=== PATIENT | male | born 1950 | race Caucasian/White ===

== ENCOUNTER 2017-07-05 22:21 | Emergency (ER) | payer BC, OTHER ==
[~2017-07-05] VITALS: Ht 162.6 cm; Wt 62.0 kg
[~2017-07-05 22:21] MED LIST: CMD1 PO; FRRG PO
[2017-07-05 22:35] VITALS: TEMP 37; Ht 162.6 cm; Wt 62.0 kg
--- NOTE | 2017-07-05 23:13 | EMERGENCY ROOM VISIT NOTE ---
History Report prepared by Elsy: Susan Cruz Under the Supervision of: Dr. Juan Pena M.D. First contact with patient: 23:04 Chief Complaint: GROIN PAIN Stated Complaint: DEEP PAIN IN R UPPER LEG/GROIN AREA History of Present Illness The patient is a 66 year old male who presents to the Emergency Room with complaints of sudden right groin pain beginning today. The patient reports that he was doing leg presses at the gym today, and when he got home he felt pain in his right groin. The patient denies testicular pain. He also denies being on blood thinners. He reports that lifting his leg exacerbates the pain. 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 The patient denies back pain , and also denies recent steroid or antibiotic use. Source of History: patient Onset: today Position: other (right groin ) Timing: other (sudden ) Modifying Factors (Worsening): movement (lifting leg ) Associated Symptoms: No back pain Review of Systems See HPI for pertinent positives & negatives. A total of 10 systems reviewed and were otherwise negative. Past Medical & Surgical Medical Problems: (1) Arthritis of knee (2) Osteoarthritis of hip Family History No pertinent family history stated. Social History Smoking Status: Never Smoker Marital Status: Current/Historical Medications Scheduled Doxycycline Hyclate (Vibramycin), 100 MG PO BID Allergies Coded Allergies: No Known Allergies (Verified , 07/05/17) Physical Exam Vital Signs Date Time Temp Pulse Resp B/P (MAP) Pulse Ox O2 Delivery O2 Flow Rate FiO2 07/06/17 01:30 77 18 132/71 97 07/06/17 00:22 77 20 119/59 99 Room Air 07/05/17 22:35 37.0 71 20 132/80 97 Room Air Physical Exam GENERAL: Patient is uncomfortable appearing and in mild distress. HEENT: No acute trauma, normocephalic atraumatic, mucous membranes moist, no nasal congestion, no scleral icterus. NECK: No stridor, no adenopathy, no meningismus, trachea is midline. LUNGS: No dyspnea. Clear to auscultation and equal bilaterally. No wheeze, no rhonchi. HEART: Regular rate and rhythm. No murmurs, rubs, gallops appreciated. ABDOMEN: Soft, nontender, bowel sounds positive, no masses appreciated, no peritonitis. BACK: No midline tenderness, no CVA tenderness EXTREMITIES: Multiple large inflamed tender lymph nodes to right groin, all mobile. No obvious hernia appreciated. No erythema. Pain with flexion of right hip. NEUROLOGIC: Alert and oriented, no acute motor or sensory deficits, no focal weakness, cranial nerves grossly intact. SKIN: No rash, no jaundice, no diaphoresis.Multiple bug bites over anterior and posterior right thigh. Medical Decision & Procedures ER Provider Diagnostic Interpretation: Radiology results and stated below per my review and [employer]. US EXTREMITY: Small reducible right inguinal hernia that appears to be fat-containing. 2.3 x 1.6 x 0.5 cm lymph node in the right inguinal region. Medications Administered Medications (Trade) Dose Ordered Sig/Lizett Route Start Time Stop Time Status Last Admin Dose Admin Doxycycline Hyclate (Vibramycin Cap) 100 mg ONE ONCE PO 07/06/17 01:30 07/06/17 01:31 DC 07/06/17 01:28 100 MG ED Course 2311: The patient was evaluated in room B8. A complete history and physical exam was performed. 0020: I updated the patient on his results. He declines pain medications and we discussed monitoring of his symptoms. 0130: Ordered Doxycycline Hyclate 100 mg PO. 0140: Reevaluated the patient. Discussed results and discharge instructions: He verbalized understanding and agreement. The patient is ready for discharge. Medical Decision 66 yr old arrives with right groin pain/swelling. TTP over this area consistent with lymph node swelling but given acute onset and history felt imaging reasonable. Large lymph node noted along with small fat containing hernia. Suspect lymph node swelling secondary to bacterial from abrasions on thigh, however with small circular one and reported multiple recent tick bites I feel doxy most reasonable of abx to choose. No other systemic symptoms and otherwise looks well. Adamantly declines pain medications. No arterial involvement nor evidence DVT by exam. No evidence this is spinal/nerve related. He is stable and looks well. Discussed at length symptoms to monitor for. Also discussed seeing surgeon for left groin hernia in further as may benefit from intervention at some point. Medication Reconcilliation Current Medication List: was personally reviewed by me Blood Pressure Screening Patient's blood pressure: Normal blood pressure Impression Primary Impression: Swollen lymph nodes Additional Impression: Fat containing hernia, groin Scribe Attestation The scribe's documentation has been prepared under my direction and personally reviewed by me in its entirety. I confirm that the note above accurately reflects all work, treatment, procedures, and medical decision making performed by me. Departure Information Dispostion Home / Self-Care Prescriptions Doxycycline Hyclate (VIBRAMYCIN) 100 Mg Cap 100 MG PO BID for 14 Days, #28 CAP Prov: Juan Pena M.D. 07/06/17 Referrals Kd Lazcano M.D. (PCP) Forms HOME CARE DOCUMENTATION FORM, IMPORTANT VISIT INFORMATION, WORK / SCHOOL INSTRUCTIONS Patient Instructions My [facility] Additional Instructions Your Ultrasound reveals a small fat containing hernia as well as a large swollen lymph node. Rest and avoid core exercises, lifting, and leg exercises over the next few days. Return if increased pain, fevers, swelling, redness, leg swelling or other concerns. Use Tylenol and Motrin as needed for discomfort. It is advised you follow up with your primary provider for repeat evaluation of lymph nodes to make sure they have resolved. Problem Qualifiers
[2017-07-06] MEDS ORDERED: DOXY100C PO (01:20)
[2017-07-06 01:30] VITALS: BP 132/71; PULSE 77; O2SAT 97
[2017-07-06] MEDS ORDERED: DOXYCYCLINE HYCLATE 100 MG CAP PO ONE (01:30)
--- NOTE | 2017-07-06 06:46 | DIAGNOSTIC IMAGING REPORT ---
RIGHT INGUINAL ULTRASOUND CLINICAL HISTORY: Right inguinal pain. COMPARISON STUDY: No previous studies for comparison. FINDINGS: Note was made of a probable small reducible fat containing right inguinal hernia. A benign-appearing right inguinal lymph node was incidentally noted. IMPRESSION: Probable small fat-containing reducible right inguinal hernia. Electronically signed by: Atul Dickinson M.D. 07/06/2017 6:45 AM Dictated Date/Time: 07/06/2017 6:43 AM
== END 2017-07-06 01:30 | disposition home or self-care (01) ==
LOC: C.EDB 22:22
DX: R59.0 Localized enlarged lymph nodes (principal); K40.90 Unilateral inguinal hernia, without obstruction or gangrene, not specified as recurrent; M16.10 Unilateral primary osteoarthritis, unspecified hip; M17.10 Unilateral primary osteoarthritis, unspecified knee

== ENCOUNTER → 2017-09-06 | Outpatient (CLI) | payer BC ==
[2017-09-06 10:53] LABS: BASO % 0.5 %; BASO ABS # 0.03 K/uL (0-0.2); COMPLETE YES; HEMATOCRIT 40.9 % (42-52); IG% 0.2 %; LYMPH % 30.9 %; LYMPH ABS # 1.76 K/uL (1.2-3.4); MEAN CELL VOLUME 92.1 fL (80-100); MEAN CORPUSCULAR HEMOGLOBIN 31.1 pg (25-34); MEAN CORPUSCULAR HGB CONC 33.7 g/dl (32-36); MEAN PLATELET VOLUME 9.8 fL (7.4-10.4); MONO % 11.2 %; NEUT % 53.2 %; PLATELET COUNT 287 K/uL (130-400); RED BLOOD COUNT 4.44 M/uL (4.7-6.1); WHITE BLOOD COUNT 5.69 K/uL (4.8-10.8)
[2017-09-06 11:18] LABS: BLOOD UREA NITROGEN 14 mg/dl (7-18); BUN/CREATININE RATIO 16.7 (10-20); CALCIUM 8.8 mg/dl (8.5-10.1); CARBON DIOXIDE 33 mmol/L (21-32); CHLORIDE 103 mmol/L (98-107); CREATININE 0.83 mg/dl (0.60-1.40); GLUCOSE 108 mg/dl (70-99); POTASSIUM 4.2 mmol/L (3.5-5.1); SODIUM 135 mmol/L (136-145)
[2017-09-06 11:24] LABS: CHOLESTEROL 171 mg/dl (0-200); CHOLESTEROL/HDL RATIO 2.2; HDL CHOLESTEROL 79 mg/dl; LDL CHOLESTEROL CALCULATED 83 mg/dl; TRIGLYCERIDES 44 mg/dl (0-150); VERY LOW DENSITY LIPOPROT CALC 9 mg/dl
== END | disposition home or self-care (01) ==
LOC: C.LABBC 08:19
PROVIDERS: ATTEND Physician Assistant
DX: Z13.220 Encounter for screening for lipoid disorders (principal); Z12.5 Encounter for screening for malignant neoplasm of prostate; R19.09 Other intra-abdominal and pelvic swelling, mass and lump

== ENCOUNTER → 2017-09-17 | Outpatient (CLI) | payer BC ==
[~2017-09-17] MED LIST changes: -CMD1 PO; -FRRG PO; +OPTIRAY 320 IV PRN
--- NOTE | 2017-09-17 08:34 | DIAGNOSTIC IMAGING REPORT ---
CT SCAN OF THE PELVIS WITH IV CONTRAST CLINICAL HISTORY: Bilateral inguinal hernias. Lower abdominal pain. COMPARISON STUDY: Pelvic radiographs dated 04/10/2011. TECHNIQUE: CT scan of the pelvis is performed from the pelvic inlet to the proximal femora following the IV administration of 94 cc of Optiray 320. Images reviewed in the axial, sagittal, and coronal planes. IV contrast was administered without complication. A dose lowering technique was utilized adhering to the principles of ALARA. CT DOSE: 209.42 mGy.cm FINDINGS: Evaluation of the pelvis is degraded by streak artifact from a left hip arthroplasty. The prostate gland appears mildly enlarged and heterogeneous. The bladder wall is mildly thickened and trabeculated suggesting chronic outlet obstruction. There is no free fluid in the pelvis. No pelvic sidewall or inguinal lymphadenopathy is seen. Surgical clips are noted along the spermatic cord bilaterally. The visualized portions of small bowel and colon are normal in caliber. There is no evidence of bowel obstruction. Mild colonic fecal retention is observed. The appendix is normal as visualized. No free fluid is seen in the pelvis. No right inguinal hernia is identified. There is a small left inguinal hernia which may contain a segment of colon. The iliac vessels are patent bilaterally. A left hip arthroplasty is in place. Mild arthritic change is seen in the right hip. The bony pelvis appears intact. Lumbosacral spondylosis and scoliosis are observed. There are bilateral pars defects at L5 with moderate to advanced disc space narrowing and 6 mm of anterolisthesis at L5-S1. A disc bulge is noted at L4-L5. No lytic or blastic lesion is seen. IMPRESSION: 1. There is a small left inguinal hernia. This likely contains a small segment of nonobstructed colon. This is difficult to assess due to streak artifact from the adjacent left hip arthroplasty. 2. No right inguinal hernia is clearly seen. 3. Prostatomegaly with findings of chronic bladder outlet obstruction. 4. Additional findings as above. Dictated: 09/17/2017 8:20 AM Transcribed: 09/17/2017 8:33 AM Brad Electronically signed by: Gómez Shah M.D. 09/17/2017 9:08 AM Dictated Date/Time: 09/17/2017 8:20 AM
== END | disposition home or self-care (01) ==
LOC: C.CTS 08:00
PROVIDERS: ATTEND Surgery
DX: N41.9 Inflammatory disease of prostate, unspecified (principal); K40.90 Unilateral inguinal hernia, without obstruction or gangrene, not specified as recurrent; R59.0 Localized enlarged lymph nodes; R10.30 Lower abdominal pain, unspecified; R19.09 Other intra-abdominal and pelvic swelling, mass and lump